=== PATIENT | male | born 1965 | race American Indian/Alaskan Native ===

== ENCOUNTER 2024-04-13 04:28 | Day surgery (SDC) | payer OTHER ==
[2024-04-11 10:55] VITALS: BMI 23.1
[2024-04-13 07:25] VITALS: TEMP 98
[2024-04-13 08:55] VITALS: BP 121/78; PULSE 59; RESP 18
== END 2024-04-13 09:10 | disposition home or self-care (01) ==
LOC: JASU-ENDO 04:28
PROVIDERS: ATTEND Internal Medicine Gastroenterology
PROC: 0DBN8ZX Excision of Sigmoid Colon, Via Natural or Artificial Opening Endoscopic, Diagnostic (ICD-10-PCS; principal; 2024-04-13 08:00)
DX: Z12.11 Encounter for screening for malignant neoplasm of colon (principal); K57.30 Diverticulosis of large intestine without perforation or abscess without bleeding; K64.8 Other hemorrhoids; D12.3 Benign neoplasm of transverse colon
CPT/HCPCS: 82962; 88305-TC

== ENCOUNTER 2025-01-19 06:15 | Day surgery (SDC) | payer OTHER ==
[2025-01-19 06:54] VITALS: BMI 20.8
[2025-01-19] MEDS ORDERED: PROPOFOL 60 ML ONE (07:20)
[2025-01-19] MEDS ORDERED: MIDAZOLAM HCL 2 MG/2 ML SINGLE DOSE VIAL ONE ×2 (07:21→08:23)
[2025-01-19] MEDS ORDERED: VANCOMYCIN 1,000 MG VIAL (RESTRICTED TO ID ONLY) ONE (07:43)
[2025-01-19] MEDS ORDERED: BUPIVACAINE HCL/PF 0.5% (5 MG/ML) 30 ML VIAL IJ ONE (07:51)
[2025-01-19] MEDS ORDERED: ePHEDrine SULFATE 50 MG/1 ML AMPULE ONE (08:30)
[2025-01-19] MEDS ORDERED: BUPIVICAINE 0.25%/MORPH PF/KETOROLAC - 51ML DISP.SYRINGE IA ONE (09:24)
[2025-01-19] MEDS ORDERED: PROPOFOL 20 ML ONE (10:44)
[2025-01-19] MEDS ORDERED: ONDANSETRON 4 MG/2 ML VIAL IVPUSH PRN (11:12)
[2025-01-19] MEDS ORDERED: MAG HYDROX/AL HYDROX/SIMETH 30 ML UNIT-DOSE CUP PO PRN (11:12)
[2025-01-19] MEDS ORDERED: ACETAMINOPHEN INJECTION 100 ML ONE (11:17)
[2025-01-19] MEDS: LACTATED RINGERS SOLUTION 1,000 ML IV SCH ×2 (13:26→13:29)
[2025-01-19] MEDS: ACETAMINOPHEN 1000 MG/100 ML BAG IVPB ONE (13:28)
[2025-01-19] MEDS: CEFAZOLIN 2 GM/D5W 2 GRAM/50 ML ML IVPB SCH (18:22)
[2025-01-19] MEDS: SENNOSIDES/DOCUSATE COMBO (SENNA PLUS) TABLET (UD) PO SCH (21:19)
[2025-01-19] MEDS: GABAPENTIN 300 MG CAPSULE PO SCH (21:19)
[2025-01-20] MEDS: metFORMIN HCL 500 MG TABLET (FP) PO SCH (06:29)
[2025-01-20] MEDS: oxyCODONE HCL 5 MG TABLET PO PRN (08:14)
[2025-01-20 08:20] LABS: HEMATOCRIT 33.4 % (40.1-51.0); HEMOGLOBIN 11.3 g/dL (13.7-17.5); MCHC 33.8 g/dl (32.3-36.5); MEAN CELL VOLUME 90.5 fl (79.0-92.2); MEAN PLT VOLUME 10.6 fl (9.4-12.4); PLATELET COUNT 209 x10^3/uL (163-337); RDW 11.8 % (12.2-16.1)
[2025-01-20 08:51] LABS: CREATININE 1.1 mg/dl (0.6-1.3); POTASSIUM 4.5 mmol/L (3.5-5.1)
[2025-01-20] MEDS: ASPIRIN COATED 81 MG TABLET.EC PO SCH (09:46)
[2025-01-20] MEDS: MULTIVITAMINS (DAILY MVI) TABLET (FP) PO SCH (09:47)
[2025-01-20] MEDS: PANTOPRAZOLE 40 MG TABLET PO SCH (09:47)
[2025-01-20] MEDS ORDERED: ASPIRIN 81 MG PO SCH (10:00)
[2025-01-20] MEDS: ACETAMINOPHEN 325 MG TABLET (FP) PO SCH (14:42)
[2025-01-20] MEDS: ACETAMINOPHEN 500 MG TABLET (FP) PO SCH (20:07)
[2025-01-20] MEDS: CELECOXIB 200 MG CAPSULE PO SCH (22:35)
[2025-01-20] MEDS: ATORVASTATIN CA 10 MG TABLET (FP) PO SCH (22:35)
[2025-01-21 00:25] VITALS: RESP 16
[2025-01-21 08:38] LABS: HEMATOCRIT 33.9 % (40.1-51.0); HEMOGLOBIN 11.5 g/dL (13.7-17.5); MCHC 33.9 g/dl (32.3-36.5); MEAN CELL VOLUME 90.9 fl (79.0-92.2); MEAN PLT VOLUME 10.6 fl (9.4-12.4); PLATELET COUNT 210 x10^3/uL (163-337); RDW 12.1 % (12.2-16.1)
[2025-01-21] MEDS: oxyCODONE HCL 5 MG TABLET PO PRN (08:45)
[2025-01-21 14:13] VITALS: BP 118/71; PULSE 73; TEMP 98.3
== END 2025-01-21 14:13 | disposition home or self-care (01) ==
LOC: FASUSAT 06:15 → FM/S 12:09 → FASUSAT 01-21 14:13
PROVIDERS: ATTEND Orthopaedic Surgery Sports Medicine
PROC: 8E0Y0CZ Robotic Assisted Procedure of Lower Extremity, Open Approach (ICD-10-PCS; 2025-01-19)
PROC: 0SRB039 Replacement of Left Hip Joint with Ceramic Synthetic Substitute, Cemented, Open Approach (ICD-10-PCS; principal; 2025-01-19 08:50)
DX: M16.12 Unilateral primary osteoarthritis, left hip (principal); M87.022 Idiopathic aseptic necrosis of left humerus
CPT/HCPCS: 36415; 73502-TC-LT-FY; 80048; 82962; 85027; 88305-TC; 88311-TC; 94760; 97116-GP; 97162-GP; C1776